=== PATIENT | female | born 1990 ===

== ENCOUNTER → 2023-11-19 13:05 | Outpatient (CLI) | payer OTHER, SELFPAY ==
[2023-11-19 19:39] LABS: HEMOLYSIS < 15 (0-50); Iron 94 ug/dL (37-170)
[2023-11-19 19:43] LABS: Add Manual Diff / Slide Review NO; Basophils Absolute Auto 100 /uL (0-100); Basophils Percent Auto 1.7 % (0-2); Eosinophils Absolute Auto 100 /uL (0-450); Eosinophils Percent Auto 1.7 % (2-4); Hematocrit 38.4 % (36-46); Hemoglobin 12.7 g/dL (12.0-16.0); Lymphocytes Absolute Auto 2600 /uL (1100-4500); Lymphocytes Percent Auto 38.8 % (25-40); Mean Corpuscular HGB Conc 33.1 % (30-36); Mean Corpuscular Hemoglobin 30.1 PG (26-34); Mean Corpuscular Volume 90.9 fL (80-100); Monocytes Absolute Auto 500 /uL (0-900); Monocytes Percent Auto 7.8 % (3-14); Neutrophils Absolute Auto 3400 /uL (1500-7000); Platelet Count 306 X10^3/uL (150-400); Red Blood Cell Count 4.23 X10^6/uL (4.0-5.2); Red Cell Distribution Width 12.9 % (11.6-14.8); White Blood Cell Count 6.8 X10^3/uL (4.5-11.0)
[2023-11-19 19:44] LABS: Alanine Aminotransferase 17 IU/L (<35); Albumin 4.5 g/dL (3.5-5.0); Albumin Globulin Ratio 1.6 (1.0-2.8); Alkaline Phosphatase 92 U/L (38-126); Aspartate Aminotransferase 25 IU/L (14-36); BUN Creatinine Ratio 21.7 (6-22); Bilirubin Total 0.4 mg/dL (0.2-1.3); Blood Urea Nitrogen 13 mg/dL (7-17); C-Reactive Protein Quant 1.1 mg/dL (<1.0); Calcium 9.2 mg/dL (8.4-10.2); Carbon Dioxide 28 mmol/L (22-32); Chloride 104 mmol/L (98-107); Cholesterol 144 mg/dL (140-199); Estimated Glomerular Filt Rate > 60 mL/min (>60); Globulin 2.8 g/dL (1.7-4.1); Glucose 87 mg/dL (70-100); HDL Cholesterol 52 mg/dL (40-60); HEMOLYSIS < 15 (0-50); LDL Cholesterol Calculated 74 mg/dL (<100); Sodium 139 mmol/L (137-145); Total Protein 7.3 g/dL (6.3-8.2); Triglycerides 89 mg/dL (35-150)
[2023-11-19 19:53] LABS: Percent Iron Saturation 34 % (15-50); Total Iron Binding Capacity 277 ug/dL (265-497); Transferrin 220 mg/dL (206-381)
[2023-11-19 19:57] LABS: HCG Quantitative /Beta subunit < 2.4 mIU/mL; Vitamin D 25 Hydroxy (D3) 31.4 ng/mL (30.0-100.0)
[2023-11-19 20:14] LABS: TSH w/ Reflex to FT4 1.17 uIU/mL (0.47-4.68)
[2023-11-19 20:15] LABS: Ferritin 56 ng/mL (6-137)
[2023-11-19 20:35] LABS: Erythrocyte Sedimentation Rate 17 MM/HR (0-20)
[2023-11-19 20:39] LABS: PTT Partial Thromboplastin Tim 48 SECONDS (25.1-36.5); Prothrombin Time 11.3 SECONDS (9.4-12.5)
[2023-11-19 20:47] LABS: Folate 15.3 ng/mL (2.76-20.0); Vitamin B12 977 pg/mL (239-931)
[2023-11-25 16:57] LABS: ANA Screen, IFA Negative (.)
[2023-11-26 14:34] LABS: Dilute Russell Viper Venom 33.5 sec (0.0-47.0); Lupus Reflex Interpretation Comment: (.)
== END ==
PROVIDERS: PCP Family Medicine; Visit Provider Family Medicine
DX: Z01.812 Encounter for preprocedural laboratory examination (principal); Z13.0 Encounter for screening for diseases of the blood and blood-forming organs and certain disorders involving the immune mechanism; R29.90 Unspecified symptoms and signs involving the nervous system; R25.8 Other abnormal involuntary movements; R26.89 Other abnormalities of gait and mobility; G35 Multiple sclerosis; R53.83 Other fatigue; G62.9 Polyneuropathy, unspecified; R20.0 Anesthesia of skin; R53.1 Weakness
CPT/HCPCS: 80053; 80061; 82306; 82607; 82728; 82746; 83540; 83550; 84443; 84702; 85025; 85598; 85610; 85613; 85651; 85730; 86038; 86140

== ENCOUNTER → 2023-12-23 10:22 | Outpatient (CLI) | payer OTHER, SELFPAY | PROVIDERS: PCP Family Medicine; Visit Provider Family Medicine | DX: R79.1 Abnormal coagulation profile (principal); T78.40XA Allergy, unspecified, initial encounter | CPT/HCPCS: 86003 ==

== ENCOUNTER → 2024-01-06 10:19 | Outpatient (CLI) | payer OTHER, SELFPAY ==
[2024-01-07 08:02] LABS: PTT Partial Thromboplastin Tim 41 SECONDS (25.1-36.5)
== END ==
PROVIDERS: PCP Family Medicine; Visit Provider Family Medicine
DX: R79.1 Abnormal coagulation profile (principal); T78.40XA Allergy, unspecified, initial encounter
CPT/HCPCS: 85730

== ENCOUNTER → 2024-08-16 10:39 | Outpatient (CLI) | payer BC, SELFPAY ==
--- NOTE | 2024-08-16 | DI.MRI.S_ITS ---
PROCEDURE: MR CERVICAL SPINE WO CON INDICATIONS: MS TECHNIQUE: Noncontrast sagittal T1 spin echo and T2 fast spin echo, sagittal STIR, sagittal proton density foraminal oblique sagittal T2 fast spin echo, and axial gradient echo or T2 fast spin echo through the cervical spine. The patient declined the scheduled contrast administration. COMPARISON: [facility], MR, MR HEAD/BRAIN WO CON, 08/16/2024, 10:57. FINDINGS: Image quality: Limited by lack of IV contrast. This examination is limited by involuntary motion artifact. Alignment and Curvature: There is normal bony alignment. Bone Marrow: Marrow demonstrates normal overall signal. Spinal Cord: Along the posterior aspect of the cervical cord at the C6-C7 level, there is abnormally increased T2 weighted signal, as on series 7, image 8. No cerebellar tonsillar herniation. Paraspinous Soft Tissues: No paravertebral masses. Prevertebral soft tissues are normal in thickness. C2-C3: Normal appearance. C3-C4: The disc height and disk signal are well-preserved. Mild to moderate disc osteophyte complex is seen, which is eccentric to the right. There is moderate right-sided and mild left-sided facet hypertrophy. There is [id number] right-sided and no left-sided neural foraminal narrowing No central canal narrowing is seen. C4-C5: Normal appearance. C5-C6: The disc height and disk signal are well-preserved. Mild disc osteophyte complex is seen, which is eccentric to the left. Mild to moderate facet hypertrophy is seen. There is moderate left-sided and no right-sided neural foraminal narrowing. No central canal narrowing is seen. C6-C7: The disc height and disk signal are well-preserved. At the C6-C7 level, there is mild central/left disc osteophyte complex. No significant neural foraminal or central canal narrowing can be seen. C7-T1: Normal appearance. IMPRESSION: There is a focus of increased T2 weighted hyperintensity within the posterior aspect of the spinal cord at the C6-C7 level, which is consistent with a multiple sclerosis plaque. Scattered foci of premature underlying degenerative change can be seen. Dictated by: Justin Strickland M.D. on 08/17/2024 at 13:22 Approved by: Justin Strickland M.D. on 08/17/2024 at 13:25
--- NOTE | 2024-08-16 | DI.MRI.S_ITS ---
PROCEDURE: MR HEAD/BRAIN WO CON INDICATIONS: MS TECHNIQUE: Noncontrast sagittal and axial FLAIR, axial and coronal T2 fast spin echo, axial VIBE, axial gradient echo, axial diffusion and ADC through the brain. After the administration of contrast, axial and coronal and sagittal VIBE with fat saturation through the brain. The patient declined the scheduled contrast administration. COMPARISON: [facility], MR, MR CERVICAL SPINE WO CON, 08/16/2024, 10:57. FINDINGS: Image quality: Limited by lack of IV contrast CSF spaces: Ventricles are normal in size and shape. Basal cisterns are patent. No extra-axial fluid collections. Brain: Areas of abnormal T2 hyperintensity can be seen within the white matter, particularly within the left peritrigonal region, as on series 8, image 15 and on series 6 image 19, where there is a 3.2 cm plaque seen. A few of the periventricular lesions demonstrate a perpendicular orientation to the lateral ventricles. There is involvement of the corpus callosum. No definite brainstem lesions or cerebellar lesions are seen. No intracranial bleeds or mass effects. Alfonso-white matter interface appears intact. No abnormal intracranial enhancement. Diffusion weighted images show no acute ischemic insults. Brainstem appears normal. Normal intravascular flow voids are present. Skull and face: Calvarial marrow signal is normal. Orbits appear normal. Sinuses: Sinuses and mastoids are clear. IMPRESSION: These imaging findings are very suspicious for multiple sclerosis, with multiple foci of T2 weighted hyperintensity, including a 3.2 cm plaque within the left peritrigonal region. Dictated by: Justin Strickland M.D. on 08/17/2024 at 13:26 Approved by: Justin Strickland M.D. on 08/17/2024 at 13:28
== END ==
PROVIDERS: PCP Family Medicine; Referring Provider Psychiatry & Neurology Neurology; Visit Provider Psychiatry & Neurology Neurology
DX: G35 Multiple sclerosis (principal); M47.812 Spondylosis without myelopathy or radiculopathy, cervical region; M48.02 Spinal stenosis, cervical region
CPT/HCPCS: 70551; 72141

== ENCOUNTER → 2024-08-17 13:52 | Outpatient (CLI) | payer BC, SELFPAY ==
[2024-08-17 18:28] LABS: PTT Partial Thromboplastin Tim 38 SECONDS (25.1-36.5)
[2024-08-17 19:06] LABS: Vitamin D 25 Hydroxy (D3) 34.7 ng/mL (30.0-100.0)
== END ==
PROVIDERS: PCP Family Medicine; Visit Provider Family Medicine
DX: G35 Multiple sclerosis (principal); E55.9 Vitamin D deficiency, unspecified; R79.1 Abnormal coagulation profile
CPT/HCPCS: 82306; 85730